=== PATIENT | male | born 1970 | race Caucasian/White ===

== ENCOUNTER 2016-11-19 11:10 | Emergency (ER) | payer SELFPAY ==
[2016-11-19] MEDS: NS 0.9% 1000 ML* 2,000 ML IV ONE ×2 (11:34→11:35)
[2016-11-19 11:35] LABS: Hematocrit 49 % (42-52); Mean Corpuscular HGB Conc 35 g/dl (31-36); Mean Corpuscular Hemoglobin 32 pg (27-31); Mean Corpuscular Volume 91 fL (80-94); Mean Platelet Volume 8 um3 (7.4-10.4); Red Blood Count 5.38 10^6/ul (4.0-5.4); Red Cell Distribution Width 13 % (10.5-15); White Blood Count 10.2 10^3/ul (3.5-10.8)
[2016-11-19 11:47] LABS: Albumin 4.7 g/dL (3.2-5.2); BUN/Creatinine Ratio 11.5 (8-20); Calcium 9.5 mg/dL (8.6-10.3); EGFR African American 89.5 (>60); EGFR Non-African American 69.6 (>60); Globulin 3.1 g/dL (2-4); Potassium 4.3 mmol/L (3.5-5.0); Total Protein 7.8 g/dL (6.4-8.9)
[2016-11-19 11:52] LABS: Troponin I 0.05 ng/mL (<0.04)
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
[2016-11-19 12:49] LABS: Urine Bilirubin Negative (Negative); Urine Glucose Negative (Negative); Urine Nitrite Negative (Negative)
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
[2016-11-19] MEDS ORDERED: Morphine INJ* 4 MG/ML 1 ML CARPUJECT IV ONE (13:22)
[2016-11-19] MEDS ORDERED: Ondansetron INJ* 2 MG/ML VIAL IV ONE (13:22)
[2016-11-19] MEDS ORDERED: NS 0.9% 1000 ML* 1,000 ML IV SCH (13:45)
[2016-11-19] MEDS ORDERED: LORazepam INJ* 2 MG/ML 1 ML VIAL IV ONE ×2 (14:02→14:48)
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
[2016-11-19 14:23] VITALS: BP 144/100
[2016-11-19] MEDS ORDERED: fentaNYL* 50 MCG/ML 2 ML VIAL (100 MCG VIAL) IV SLOW PU ONE (16:45)
== END 2016-11-19 14:03 | disposition short-term general hospital (02) ==
LOC: ED 11:10
DX: S01.01XA Laceration without foreign body of scalp, initial encounter (principal); R07.9 Chest pain, unspecified; S09.90XA Unspecified injury of head, initial encounter; S22.019A Unspecified fracture of first thoracic vertebra, initial encounter for closed fracture; R79.89 Other specified abnormal findings of blood chemistry; R20.0 Anesthesia of skin; V48.5XXA Car driver injured in noncollision transport accident in traffic accident, initial encounter; Y92.410 Unspecified street and highway as the place of occurrence of the external cause; Z87.891 Personal history of nicotine dependence
CPT/HCPCS: 12002; 36415; 70450; 70486; 71010; 72125; 80053; 81003; 82550; 82553; 84484; 85025; 85610; 85730; 93005; 96360; 96375; 96376; 99284; J2060; J2270; J2405; J3010